=== PATIENT | male | born 1985 | race Hispanic/Latino ===

== ENCOUNTER 2018-02-15 12:35 | Emergency (ER) | payer BC ==
--- NOTE | 2018-02-15 12:51 | ED PDOC ---
Upper Extremity Pain/Injury Time Seen by Provider: 02/15/18 12:46 Chief Complaint (Nursing): Upper Extremity Problem/Injury History Per: Patient Onset/Duration Of Symptoms: Hrs (1) Current Symptoms Are (Timing): Still Present Quality: Aching Severity: Moderate Exacerbating Factor(s): Other (vomiting) Additional Complaint(s): Pain and deformity left shoulder. Occurred after forceful vomiting. Previous h/o dislocation with surgical repair. Last ate yogurt at 9 AM today. Past Medical History - Medical History PMH: HTN - Surgical History Other surgeries: Left shoulder dislocation repair - Family History Family History: States: Unknown Family Hx - Home Medications Home Medications: Ambulatory Orders Medication Instructions Recorded Naproxen [Naprosyn] 500 mg PO Q12H #20 tab 02/15/18 - Allergies Allergies/Adverse Reactions: Allergies Allergy/AdvReac Type Severity Reaction Status Date / Time No Known Allergies Allergy Verified 02/15/18 13:04 Review of Systems Musculoskeletal: Positive for: Shoulder Pain Neurological: Negative for: Weakness, Numbness - Progress Re-evaluation Time: 13:57 Condition: Improved (Awake alert oriented x 3. No focal neuro deficits. Left upper radial pulse 2/4 equal to right. Motor and sensory intact. Able to extend and flex wrist. Able to extend and flex fingers. Performed by physician.) Procedures - Time-Out Type of Procedure: Left shoulder reduction 12:57 PM Site of Procedure: Left shoulder Correct Patient: Yes Correct Procedure: Yes Physician Name: Kaurran - Joint Reduction Joint Reduction Site: shoulder (L) Reduction Attempts: 1 Pre-Procedure NV Exam: Yes Post Joint Reduction Film: no fracture seen Progress: Deep sedation using IV Propofol 90 Mg. End Tidal CO2 noted with good wave form Disposition - Clinical Impression Clinical Impression: Anterior shoulder dislocation - Patient ED Disposition Is Patient to be Admitted: No Counseled Patient/Family Regarding: Studies Performed, Diagnosis, Need For Followup, Rx Given - Disposition Referrals: Franc Jo MD [Staff Provider] - Disposition: Routine/Home Disposition Time: 14:00 Condition: FAIR Prescriptions: Naproxen [Naprosyn] 500 mg PO Q12H #20 tab Instructions: Shoulder Dislocation, Anesthesia, Moderate Sedation in Adults Forms: Yuyuto (Russian)
[2018-02-15] MEDS ORDERED: Propofol 10 mg/ml Inj (20 ML) IV ONE (12:54)
[2018-02-15] MEDS ORDERED: Propofol 10 mg/ml 0 MG/0 ML VIAL ONE (12:55)
[2018-02-15] MEDS ORDERED: Sodium Chloride 0.9% 1,000 ML IV STA (13:30)
[2018-02-15 14:29] VITALS: BP 135/82; PULSE 88; RESP 16; TEMP 98.1; O2SAT 99
--- NOTE | 2018-02-16 10:56 | RAD ---
Date of service: 02/15/2018 PROCEDURE: Radiographs of the Left Shoulder HISTORY: dislocation COMPARISON: No prior. FINDINGS: BONES: Normal. No fracture. JOINTS: Normal. Glenohumeral and acromioclavicular joints preserved. No osteoarthritis. SOFT TISSUES: Normal. OTHER FINDINGS: None. IMPRESSION: No evidence of dislocation. Successful reduction.
== END 2018-02-15 14:28 | disposition home or self-care (01) ==
LOC: H.ER 12:35
DX: S43.005A Unspecified dislocation of left shoulder joint, initial encounter (principal); I10 Essential (primary) hypertension
CPT/HCPCS: 23650; 73030; 96374; 99284; J1885; J2704; J7030